=== PATIENT | female | born 1950 | race Caucasian/White ===

== ENCOUNTER 2019-08-13 10:30 | Outpatient (CLI) | payer OTHER ==
[~2019-08-13 10:30] MED LIST: Levsin/Sl 0.125 MG TAB.SUBL SL; PROTONIX PO
== END 2019-08-13 10:37 | disposition home or self-care (01) ==
LOC: SONOGRAMA 10:30
DX: D25.9 Leiomyoma of uterus, unspecified (principal)